=== PATIENT | female | born 1935 | race Caucasian/White ===

== ENCOUNTER 2018-04-19 05:34 | Day surgery (SDC) | payer OTHER ==
[~2018-04-19] VITALS: Ht 177.8 cm; Wt 49.9 kg
[~2018-04-19 05:34] MED LIST: FEOSOL325 MG PO; IMBRUVICA140 MG PO; LASIX20 MG PO; NORVASC10 MG PO; ONCE DAILY1 EACH PO; PAXIL20 MG PO; PLAVIX75 MG PO; PRAVACHOL10 MG PO; PRINIVIL20 MG PO; SYNTHROID25 MCG PO; VITAMIN D-32000 UNI2 PO; ZYLOPRIM100 MG PO
[2018-04-19 06:10] VITALS: BP 134/80
[2018-04-19 06:43] LABS: HEMATOCRIT 28.2 % (36.0-46.0); MCH 30.2 PG (29.0-34.0); MCHC 31.9 G/DL (30.0-36.0); MCV 94.6 FL (83-99); PLATELET COUNT 185 K/uL (156-360); RBC DIS.WIDTH-CV 15.7 % (11.8-14.6); RBC DIS.WIDTH-SD 54.6 % (39-53); RED BLOOD COUNT 2.98 M/uL (3.80-5.20); WHITE BLOOD COUNT 6.4 K/uL (4.1-10.2)
[2018-04-19 07:05] LABS: ALBUMIN 3.5 G/DL (3.2-4.8); ALKALINE PHOSPHATASE 91 IU/L (3-129); ALT (GPT) 5 IU/L (3-49); AST (GOT) 12 IU/L (2-34); CHLORIDE 103 MEQ/L (99-109); CREATININE 2.3 MG/DL (0.6-1.3); GFR ESTIMATE (CALCULATED) 22 mL/min/; GLUCOSE 110 mg/dL (70-99); SODIUM 137 MEQ/L (136-147); TOTAL BILIRUBIN 0.6 MG/DL (0.0-1.0); TOTAL PROTEIN 5.7 G/DL (6.4-8.3); UREA NITROGEN (BUN) 33 mg/dL (9-23)
[2018-04-19 08:28] VITALS: BP 153/70
[2018-04-19 09:35] VITALS: BP 183/81
== END 2018-04-19 09:35 | disposition home or self-care (01) ==
LOC: SDC 05:34
PROVIDERS: Ophthalmology
PROC: 08B53ZZ Excision of Left Vitreous, Percutaneous Approach (ICD-10-PCS; principal; 2018-04-19)
PROC: 08NF3ZZ Release Left Retina, Percutaneous Approach (ICD-10-PCS; principal; 2018-04-19)
DX: H43.12 Vitreous hemorrhage, left eye (principal); H35.372 Puckering of macula, left eye; H35.342 Macular cyst, hole, or pseudohole, left eye; E03.9 Hypothyroidism, unspecified; I12.9 Hypertensive chronic kidney disease with stage 1 through stage 4 chronic kidney disease, or unspecified chronic kidney disease; N18.4 Chronic kidney disease, stage 4 (severe); F32.9 Major depressive disorder, single episode, unspecified; I49.3 Ventricular premature depolarization; Z79.02 Long term (current) use of antithrombotics/antiplatelets
CPT/HCPCS: 80053; 85027; J0690; J1100; J2795; J3300